=== PATIENT | male | born 1955 | race African-American/Black ===

== ENCOUNTER 2016-12-26 10:23 | Emergency (ER) | payer SELFPAY ==
[~2016-12-26] VITALS: Ht 175.3 cm; Wt 75.0 kg
[~2016-12-26 10:23] MED LIST: psych meds
[2016-12-26 12:08] VITALS: BP 93/55
[2016-12-26] MEDS ORDERED: ONDANSETRON 4MG/5ML UDC PO ONE (14:45)
== END 2016-12-26 15:27 | disposition home or self-care (01) ==
LOC: ER 10:38
DX: H61.23 Impacted cerumen, bilateral (principal); R11.2 Nausea with vomiting, unspecified; Z86.59 Personal history of other mental and behavioral disorders; F25.0 Schizoaffective disorder, bipolar type
CPT/HCPCS: 69209; 99283; Q0162; Z7610

== ENCOUNTER 2017-01-30 04:17 | Emergency (ER) | payer SELFPAY ==
[~2017-01-30] VITALS: Ht 177.8 cm; Wt 72.0 kg
[2017-01-30 08:51] VITALS: BP 143/82
== END 2017-01-30 08:54 | disposition home or self-care (01) ==
LOC: ER 04:17
DX: H61.23 Impacted cerumen, bilateral (principal); F20.9 Schizophrenia, unspecified; Q90.9 Down syndrome, unspecified; F31.9 Bipolar disorder, unspecified
CPT/HCPCS: 99283